=== PATIENT | male | born 1960 | race Caucasian/White ===

== ENCOUNTER 2020-10-03 16:06 | Emergency (ER) | payer MEDICAID ==
[~2020-10-03] VITALS: Ht 175.3 cm; Wt 97.0 kg
[2020-10-03 16:15] VITALS: BP 129/88
--- NOTE | 2020-10-03 16:32 | NUR ---
Sling readjusted so that R hand is no longer dependent.
== END 2020-10-03 16:51 | disposition home or self-care (01) ==
LOC: ER 16:07
DX: S42.91XA Fracture of right shoulder girdle, part unspecified, initial encounter for closed fracture (principal); F17.200 Nicotine dependence, unspecified, uncomplicated; Z72.89 Other problems related to lifestyle; X58.XXXA Exposure to other specified factors, initial encounter; Y93.89 Activity, other specified; Y92.89 Other specified places as the place of occurrence of the external cause; Y99.8 Other external cause status
CPT/HCPCS: 99284